=== PATIENT | female | born 1965 | race Caucasian/White ===

== ENCOUNTER 2020-06-02 07:32 | Outpatient (REF) | payer OTHER, SELFPAY ==
[2020-06-02 11:19] LABS: MANUAL DIFF FLAG NO
[2020-06-02 11:36] LABS: Basophils Absolute Auto 0.1 X10*3/uL (0.0-0.2); Basophils Percent Auto 0.9 % (0-2); Eosinophils Absolute Auto 0.2 X10*3/uL (0.0-0.4); Eosinophils Percent Auto 3.4 % (0-4); Hemoglobin 13.1 g/dl (12.0-16.0); Imm Gran Abs Auto 0.01 X10*3/uL (0.00-0.03); Imm Gran Pct Auto 0.2 % (0.0-0.4); Lymphocytes Absolute Auto 2.1 X10*3/uL (1.2-4.9); Lymphocytes Percent Auto 39.1 % (20-40); Mean Corpuscular Hemoglobin 30.2 pg (27.0-33.0); Mean Corpuscular Volume 94.5 fL (80-98); Mean Platelet Volume 10.5 fL (9.4-12.3); Monocytes Absolute Auto 0.6 X10*3/uL (0.1-1.2); Monocytes Percent Auto 10.6 % (2-11); Neutrophils Absolute Auto 2.5 X10*3/uL (2.0-8.3); Neutrophils Percent Auto 45.8 % (45-73); Platelet Count 206 X10*3/uL (160-400); Red Blood Count 4.34 X10*6/uL (4.20-5.50); Red Cell Distribution Width 11.9 % (11.0-16.0); White Blood Count 5.4 X10*3/uL (4.8-10.8)
[2020-06-02 11:45] LABS: Glucose Urine UA NEG (NEG); Leukocyte Esterase Urine NEG (NEG); Nitrite Urine NEG (NEG); PH 6.5 (5.0-8.0); Urine Blood NEG (NEG); Urine Ketones NEG (NEG); Urine Protein NEG (NEG-TRACE)
[2020-06-02 11:47] LABS: Appearance Urine CLEAR; Color Urine YELLOW
[2020-06-02 11:56] LABS: Alanine Aminotransferase 29 U/L (0-31); Albumin Level 4.2 g/dL (3.5-5.0); Alkaline Phosphatase 55 U/L (39-117); Anion Gap 10 (12-20); Aspartate Amino Transferase 25 U/L (5-31); Bilirubin Total 0.7 mg/dL (0.0-1.0); Blood Urea Nitrogen 14 mg/dL (9-16); Carbon Dioxide 31 mmol/L (22-29); Chloride 105 mmol/L (96-108); Cholesterol 171 mg/dL; Estimated Glomerular Filt Rate > 60; Glucose Fasting 88 mg/dL (60-99); HDL Cholesterol 71 mg/dL; LDL Cholesterol Calculated 80 mg/dl; Potassium 4.2 mmol/L (3.3-5.1); Sodium 142 mmol/L (135-145); Total Protein 6.9 g/dL (6.5-8.0); Triglycerides 102 mg/dL
[2020-06-02 12:20] LABS: Mucus Urine 2+ /LPF; RBC Urine 0-2 /HPF (0); Squamous Epithelial Cell Urine 2+ /LPF; WBC Urine 0-2 /HPF (0-4)
[2020-06-02 12:22] LABS: TSH reflex Free T4 4.11 uIU/mL (0.32-4.0)
[2020-06-02 13:24] LABS: Free T4 (Free Thyroxine) 0.82 ng/dL (0.71-1.85)
== END 2020-06-02 07:33 | disposition home or self-care (01) ==
LOC: HO.HMGCLDS 07:32
PROVIDERS: PCP Internal Medicine; Visit Provider Internal Medicine
DX: Z00.00 Encounter for general adult medical examination without abnormal findings (principal)
CPT/HCPCS: 36415; 80053; 80061; 81001; 84439; 84443; 85025

== ENCOUNTER 2021-01-19 12:45 | Outpatient (REF) | payer OTHER, SELFPAY ==
[2021-01-19 14:47] LABS: TSH reflex Free T4 2.21 uIU/mL (0.32-4.0)
== END 2021-01-19 12:46 | disposition home or self-care (01) ==
LOC: HO.HMGCLDS 12:45
PROVIDERS: Visit Provider Internal Medicine
DX: Z00.00 Encounter for general adult medical examination without abnormal findings (principal); E03.8 Other specified hypothyroidism; Z12.11 Encounter for screening for malignant neoplasm of colon
CPT/HCPCS: 36415; 84443

== ENCOUNTER 2022-07-30 14:25 | Outpatient (REF) | payer OTHER, SELFPAY ==
[2022-07-31 12:38] LABS: BV Int Neg Control Negative (Negative); BV Int Pos Control Positive (Positive)
== END 2022-07-30 14:26 | disposition home or self-care (01) ==
LOC: HO.LAB 14:25
PROVIDERS: Visit Provider Internal Medicine
DX: R10.2 Pelvic and perineal pain (principal)
CPT/HCPCS: 87480; 87510; 87660

== ENCOUNTER 2022-08-12 08:14 | Outpatient (REF) | payer OTHER, SELFPAY ==
[2022-08-12 11:12] LABS: MANUAL DIFF FLAG NO
[2022-08-12 11:33] LABS: Basophils Absolute Auto 0.1 X10*3/uL (0.0-0.2); Basophils Percent Auto 1.5 % (0-2); Eosinophils Absolute Auto 0.1 X10*3/uL (0.0-0.4); Hematocrit 39.9 % (37.0-47.0); Imm Gran Abs Auto 0.01 X10*3/uL (0.00-0.03); Imm Gran Pct Auto 0.2 % (0.0-0.4); Lymphocytes Absolute Auto 1.9 X10*3/uL (1.2-4.9); Lymphocytes Percent Auto 39.5 % (20-40); Mean Corpuscular HGB Conc 32.6 g/dl (31.0-35.0); Mean Corpuscular Hemoglobin 30.7 pg (27.0-33.0); Mean Corpuscular Volume 94.3 fL (80.0-98.0); Mean Platelet Volume 10.4 fL (9.4-12.3); Monocytes Absolute Auto 0.6 X10*3/uL (0.1-1.2); Neutrophils Percent Auto 42.8 % (45-73); Platelet Count 228 X10*3/uL (160-400); Red Blood Count 4.23 X10*6/uL (4.20-5.50); Red Cell Distribution Width 12.2 % (11.0-16.0); White Blood Count 4.7 X10*3/uL (4.8-10.8)
[2022-08-12 11:36] LABS: Appearance Urine Clear; Color Urine Yellow; Glucose Urine UA Negative (Negative); Leukocyte Esterase Urine Trace (Negative); Nitrite Urine Negative (Negative); PH 6.5 (5.0-9.0); UMIC TRIGGER UACC YES; Urine Blood Negative (Negative); Urine Ketones Negative (Negative); Urine Protein Negative (Neg-Trace)
[2022-08-12 11:39] LABS: Bacteria Urine None Seen (None Seen); Hyaline Casts Urine 0-2 /LPF (0-2); RBC Urine 0-2 /HPF (0-2); WBC Urine 0-5 /HPF (0-5)
[2022-08-12 12:09] LABS: Alanine Aminotransferase 22 U/L (0-31); Albumin Level 4.1 g/dL (3.5-5.0); Alkaline Phosphatase 49 U/L (39-117); Anion Gap 8 (12-20); Aspartate Amino Transferase 23 U/L (5-31); Bilirubin Total 0.8 mg/dL (0.0-1.0); Blood Urea Nitrogen 14 mg/dL (9-16); Calcium 9.1 mg/dL (8.4-10.2); Carbon Dioxide 31 mmol/L (22-29); Chloride 107 mmol/L (96-108); Cholesterol 206 mg/dL; Estimated Glomerular Filt Rate > 60; Glucose Fasting 94 mg/dL (60-99); HDL Cholesterol 90 mg/dL; LDL Cholesterol Calculated 102 mg/dl; Potassium 4.3 mmol/L (3.3-5.1); Sodium 142 mmol/L (135-145); Total Protein 6.8 g/dL (6.5-8.0); Triglycerides 74 mg/dL
[2022-08-12 12:10] LABS: TSH reflex Free T4 2.03 uIU/mL (0.32-4.0); Vitamin D 25-OH Total 28.4 ng/mL (>30)
== END 2022-08-12 08:15 | disposition home or self-care (01) ==
LOC: HO.HMGCLDS 08:14
PROVIDERS: PCP Internal Medicine; Visit Provider Internal Medicine
DX: Z00.00 Encounter for general adult medical examination without abnormal findings (principal)
CPT/HCPCS: 36415; 80053; 80061; 81001; 82306; 84443; 85025

== ENCOUNTER 2023-08-02 06:56 | Outpatient (REF) | payer BC, SELFPAY ==
[2023-08-02 11:49] LABS: Basophils Absolute Auto 0.1 X10*3/uL (0.0-0.2); Basophils Percent Auto 1.1 % (0-2); Eosinophils Absolute Auto 0.2 X10*3/uL (0.0-0.4); Eosinophils Percent Auto 3.3 % (0-4); Hematocrit 39.2 % (37.0-47.0); Hemoglobin 13.4 g/dl (12.0-16.0); Imm Gran Abs Auto 0.02 X10*3/uL (0.00-0.03); Imm Gran Pct Auto 0.4 % (0.0-0.4); Lymphocytes Absolute Auto 2.1 X10*3/uL (1.2-4.9); Lymphocytes Percent Auto 39.4 % (20-40); MANUAL DIFF FLAG NO; Mean Corpuscular HGB Conc 34.2 g/dl (31.0-35.0); Mean Corpuscular Hemoglobin 31.6 pg (27.0-33.0); Mean Corpuscular Volume 92.5 fL (80.0-98.0); Mean Platelet Volume 9.9 fL (9.4-12.3); Monocytes Absolute Auto 0.6 X10*3/uL (0.1-1.2); Monocytes Percent Auto 11.3 % (2-11); Neutrophils Absolute Auto 2.4 x10*3/uL (2.0-8.3); Neutrophils Percent Auto 44.5 % (45-73); Platelet Count 233 X10*3/uL (160-400); Red Blood Count 4.24 X10*6/uL (4.20-5.50); Red Cell Distribution Width 12.3 % (11.0-16.0); White Blood Count 5.4 X10*3/uL (4.8-10.8)
[2023-08-02 12:17] LABS: Alanine Aminotransferase 22 U/L (0-31); Albumin Level 4.2 g/dL (3.5-5.0); Alkaline Phosphatase 48 U/L (39-117); Anion Gap 11 (12-20); Aspartate Amino Transferase 25 U/L (5-31); Bilirubin Total 0.7 mg/dL (0.0-1.0); Blood Urea Nitrogen 14 mg/dL (9-16); Calcium 9.6 mg/dL (8.4-10.2); Carbon Dioxide 30 mmol/L (22-29); Chloride 105 mmol/L (96-108); Cholesterol 178 mg/dL (<200); Estimated Glomerular Filt Rate > 60; Glucose Fasting 96 mg/dL (60-99); HDL Cholesterol 88 mg/dL (>40); LDL Cholesterol Calculated 81 mg/dL (<100); Potassium 4.1 mmol/L (3.3-5.1); Sodium 142 mmol/L (135-145); Total Protein 6.9 g/dL (6.5-8.0); Triglycerides 45 mg/dL (<150)
[2023-08-02 12:36] LABS: TSH reflex Free T4 3.37 uIU/mL (0.32-4.0); Vitamin D 25-OH Total 41.8 ng/mL (>30)
== END 2023-08-02 06:57 | disposition home or self-care (01) ==
LOC: HO.HMGCLDS 06:56
PROVIDERS: PCP Internal Medicine; Visit Provider Internal Medicine
DX: Z00.00 Encounter for general adult medical examination without abnormal findings (principal); E03.8 Other specified hypothyroidism; E55.9 Vitamin D deficiency, unspecified
CPT/HCPCS: 36415; 80053; 80061; 82306; 84443; 85025

== ENCOUNTER 2023-08-04 07:53 | Outpatient (AMB) | payer BC, SELFPAY ==
--- NOTE | 2023-08-04 08:02 | MHC.PC.OV ---
Vital Signs 08/04/23 08:04 Height 5 ft 7 in Weight 142 lb BMI 22.2 BP 120/72 Blood Pressure Location Rt brachial Position Sitting Pulse 72 Pulse Source Pulse Oximeter Pulse Oximetry (%) 98 Oxygen Delivery Method Room Air Intake Visit Reasons: Annual PE Allergies penicillin V Allergy (Unknown, Verified 08/04/23 08:04) Rash Medication List - Last Reconciled 08/04/23 by Tasha Crabtree MD chlorpheniramine maleate 4 mg PO Q4H PRN Tobacco use date assessed: 08/04/23 Dental Screening Dental Screen Date: 08/04/23 Did you have a dental visit in the last 12 months?: Yes Did you have a dental problem in the last 6 months where you did not have access to dental care?: No Was dental information given to patient?: Patient has dentist HPI Annual PE HPI Details Pt presents for PE. PFSH Medical History Colon cancer screening Subclinical hypothyroidism Mammogram normal Normal Pap smear Anxiety Annual physical exam Surgical History No pertinent past surgical history Family History Father No problems noted. 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[employer] Housing: House Patient Tobacco Use Status: Former Tobacco user (over 20 years ago) e-Cigarette/Vaping Use: Never Used Current occupational status: employed Cognitive needs: No Hearing needs: No Vision needs: Yes Questionnaire Thrive Questionnaire Date Thrive assessed: 01/19/21 I am a: Patient What is your living situation today?: I have a steady place to live Within the past 12 months, did the food you bought not last and you didn't have the money to get more?: Never true Within the past 12 months, did you worry whether your food would run out before you got money to buy more?: Never true THRIVE Score: 0 AUDIT C Alcohol Use Questionnaire (AUDIT-C) 1. How often do you have a drink containing alcohol?: 2-3 times a week 2. How many drinks containing alcohol do you have on a typical day when you are drinking?: 1 or 2 3. How often do you have six or more drinks on one occasion?: Never Total Score: 3 ADONAY-7 AMB Questionnaire ADONAY-7 Date ADONAY - 7 assessed: 01/19/21 Feeling nervous, anxious, or on edge: 1 = Several days Not being able to stop or control worryin = Several days Worrying too much about different things: 1 = Several days Trouble relaxin = Several days Being so restless that it is hard to sit still: 1 = Several days Becoming easily annoyed or irritable: 1 = Several days Feeling afraid as if something awful might happen: 0 = Not at all Total ADONAY-7 score (0-4 normal; 5-9 mild; 10-14 moderate; 15-21 severe): 6 Source: Developed by Drs. Evan Diaz, Ariane Lance, Gerardo Stovall and colleagues, with an educational idalia from [employer]. Review of Systems Const All systems reviewed & are unremarkable except as noted in HPI and below Reports no additional complaints Eyes Reports no additional complaints ENT Reports no additional complaints Card Reports no additional complaints Resp Reports no additional complaints GI Reports no additional complaints Reports no additional complaints Physical exam (Primary Care) Vital Signs: Last Vital Signs Pulse 72 08/04/23 08:04 BP 120/72 08/04/23 08:04 Pulse Ox 98 08/04/23 08:04 Oxygen Delivery Method Room Air 08/04/23 08:04 BMI result Body Mass Index 22.2 Tobacco/Smoking Status: Tobacco use Status Tobacco use date assessed 08/04/23 08/04/23 08:06 Patient Tobacco Use Status Former Tobacco user (over 20 08/04/23 08:16 years ago) e-Cigarette/Vaping Use Never Used 08/04/23 08:16 Thrive Assessment: Date of Thrive Assessment Date Thrive assessed 01/19/21 08/04/23 08:06 Const General: no acute distress HENMT Head: Yes normal to inspection Ears: hearing grossly normal bilaterally General nose exam: Normal external nose present Face and sinus: Yes normal facial exam Mouth: Normal oral and palatal mucosa present Throat: Yes posterior oropharynx normal Eyes General: appearance normal, both eyes and all related structures Neck Neck: Yes no lymphadenopathy and Yes supple Resp Effort & Inspection: normal respiratory effort Auscultation: clear to auscultation bilaterally Cardio Rhythm: regular rhythm Heart sounds: S1 normal heart sound present and S2 normal heart sound present GI Inspection: Yes normal to inspection Palpation (GI): Soft to palpation Percussion: Yes normal to percussion Auscultation: normal bowel sounds Assessment and Plan Assessment & Plan (1) Annual physical exam: Code(s): Z00.00 - Encounter for general adult medical examination without abnormal findings Plan: Well balanced diet, regular exercise discussed with the patient. She has up-to-date with the mammogram had negative Cologuard this year and had negative Pap smear in 2020 by estate agent (2) Subclinical hypothyroidism: Code(s): E03.8 - Other specified hypothyroidism Plan: Monitor TSH (3) Vitamin D deficiency: Code(s): E55.9 - Vitamin D deficiency, unspecified Plan: Continue vitamin-D supplement Orders: Orders Comprehensive [place]. Panel Fast 1 Year E03.8 - Other specified hypothyroidism, E55.9 - Vitamin D deficiency, unspecified, Z00.00 - Encounter for general adult medical examination without abnormal findings Lipid Panel 1 Year E03.8 - Other specified hypothyroidism, E55.9 - Vitamin D deficiency, unspecified, Z00.00 - Encounter for general adult medical examination without abnormal findings Vitamin D 25-OH Total 1 Year E03.8 - Other specified hypothyroidism, E55.9 - Vitamin D deficiency, unspecified, Z00.00 - Encounter for general adult medical examination without abnormal findings Complete Blood Count Auto Diff 1 Year E03.8 - Other specified hypothyroidism, E55.9 - Vitamin D deficiency, unspecified, Z00.00 - Encounter for general adult medical examination without abnormal findings TSH reflex Free T4 1 Year E03.8 - Other specified hypothyroidism, E55.9 - Vitamin D deficiency, unspecified, Z00.00 - Encounter for general adult medical examination without abnormal findings Coding Level of Care Code Est Pt Prev Care 40-64y(91818) Diagnoses Annual physical exam Z00.00 Subclinical hypothyroidism E03.8 Vitamin D deficiency E55.9
[2023-08-04 08:04] VITALS: BP 120/72; PULSE 72; O2SAT 98; BMI 22.2
== END 2023-08-04 08:26 | disposition home or self-care (01) ==
PROVIDERS: Visit Provider Internal Medicine
DX: Z00.00 Encounter for general adult medical examination without abnormal findings (principal); E03.8 Other specified hypothyroidism; E55.9 Vitamin D deficiency, unspecified
CPT/HCPCS: 99396

== ENCOUNTER 2023-09-11 08:06 | Outpatient (AMB) | payer BC, SELFPAY ==
[2023-09-11 08:08] VITALS: BP 122/70; PULSE 76; TEMP 36.9; O2SAT 98; BMI 22.2
--- NOTE | 2023-09-11 08:08 | MHC.OFFWIV ---
Intake Vital Signs 09/11/23 08:08 Height 5 ft 7 in Weight 142 lb BMI 22.2 BP 122/70 Blood Pressure Location Rt brachial Position Sitting Pulse 76 Pulse Source Pulse Oximeter Temp 98.5 F Temp Source Oral Pulse Oximetry (%) 98 Oxygen Delivery Method Room Air Intake Visit Reasons: EP RT ear pain Intake Note: pt is here for rt ear pain Patient Tobacco Use Status: Former Tobacco user (over 20 years ago) Allergies penicillin V Allergy (Unknown, Verified 09/11/23 08:09) Rash Do you need a note to return to daycare/school/sports/work: Yes HPI EP RT ear pain HPI Details This note is constructed using voice recognition software. While every effort has been made to ensure accuracy, support representative errors may have been included. 57-year-old female patient presents with 2 day history of right ear blockage, pain, and clear discharge. She notes that she has had a longstanding issue where she has had itch inside the ear, and uses an ear drop that is essential oils to help with the irritation feeling. She also notes that she occasionally uses Debrox because she feels that she has lots of cerumen in her ear. She does not insert Q-tips, and has minimal change in her hearing as a result of this issue. She denies fever, chills, cough, shortness of breath. She takes a daily antihistamine due to chronic hives, and this seems to work very well for hives as well as allergy treatment. [facility] Medical History Colon cancer screening Subclinical hypothyroidism Mammogram normal Normal Pap smear Anxiety Annual physical exam Surgical History No pertinent past surgical history Family History Father No problems noted. 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 Patient Tobacco Use Status: Former Tobacco user (over 20 years ago) e-Cigarette/Vaping Use: Never Used Current occupational status: employed Cognitive needs: No Hearing needs: No Vision needs: Yes Review of Systems Const All systems reviewed & are unremarkable except as noted in HPI and below Physical Exam Vital Signs: Last Vital Signs Temp 98.5 F 09/11/23 08:08 Pulse 76 09/11/23 08:08 BP 122/70 09/11/23 08:08 Pulse Ox 98 09/11/23 08:08 Oxygen Delivery Method Room Air 09/11/23 08:08 BMI result Body Mass Index 22.2 Const General: cooperative, healthy appearing, comfortable and no acute distress Orientation/consciousness: patient oriented x3 Limitations: no limitations HEENT Head: Yes normal to inspection Ears: hearing grossly normal bilaterally, Abnormal EAC present erythema on the right and TM abnormal retracted bilateral General nose exam: Normal external nose present, Normal nares present and No nasal discharge present Face and sinus: Yes normal facial exam and Yes sinuses nontender Mouth: Normal oral and palatal mucosa present and moist mucous membranes Throat: Yes tonsils normal, Yes uvula midline and Yes posterior oropharynx abnormal (Erythema) Eyes General: appearance normal, both eyes and all related structures Neck Neck: Yes normal visual inspection Resp Effort & Inspection: normal respiratory effort, able to speak in complete sentences, Actively coughing, no respiratory distress, not tachypneic, no tripod positioning and no use of accessory muscles Auscultation: clear to auscultation bilaterally Cardio Jugular venous distension: no JVD Rate: regular rate Rhythm: regular rhythm Heart sounds: S1 normal heart sound present, S2 normal heart sound present, no click, no gallops, no murmurs and no rubs Skin General skin exam: no rashes or lesions noted, elasticity normal and turgor normal Neuro General: patient oriented x3 Extrem General: Yes normal to inspection and Yes no clubbing, cyanosis or edema Assessment & Plan Assessment & Plan (1) Otitis externa of right ear: Code(s): H60.91 - Unspecified otitis externa, right ear Qualifiers: Otitis externa type: swimmer's ear Chronicity: acute Qualified Code(s): H60.331 - Swimmer's ear, right ear Plan: Eardrops prescribed for treatment. Advised to follow up with any worsening symptoms, including sudden loss of hearing, or discharge. (2) Allergic rhinitis: Code(s): J30.9 - Allergic rhinitis, unspecified Qualifiers: Allergic rhinitis trigger: pollen Allergic rhinitis seasonality: seasonal Qualified Code(s): J30.1 - Allergic rhinitis due to pollen Plan: Advised the addition of Flonase nasal spray for symptomatic relief. Continue with antihistamine, consider discussion with tug boat captain on appropriate treatment plan long-term. Plan See above for full details and plan. Medications: New ciprofloxacin-dexamethasone 0.3-0.1 % Apply inside right ear 4 drps otic (ears) BID 7 days 7.5 mL 0RF Coding Level of Care Code Est Pt Level 4 (98455) Diagnoses Acute swimmer's ear of right side H60.331 Otitis externa type: swimmer's ear Chronicity: acute Seasonal allergic rhinitis due to pollen J30.1 Allergic rhinitis trigger: pollen Allergic rhinitis seasonality: seasonal
== END 2023-09-11 09:02 | disposition home or self-care (01) ==
PROVIDERS: PCP Internal Medicine; Visit Provider Registered Nurse
DX: H60.331 Swimmer's ear, right ear (principal); J30.1 Allergic rhinitis due to pollen
CPT/HCPCS: 99214

== ENCOUNTER 2024-02-04 08:26 | Outpatient (AMB) | payer BC, SELFPAY ==
--- NOTE | 2024-02-04 08:32 | MHC.OFFWIV ---
Intake Vital Signs 02/04/24 08:33 Height 5 ft 7 in Weight 146 lb BMI 22.9 BP 118/70 Blood Pressure Location Rt brachial Position Sitting Pulse 82 Pulse Source Pulse Oximeter Temp 97.9 F Temp Source Oral Pulse Oximetry (%) 98 Oxygen Delivery Method Room Air Intake Visit Reasons: EP pain on both ears, specially LT, sore throat Intake Note: Patient here for left ear pain that has been present for about 3 days. Patient Tobacco Use Status: Former Tobacco user (over 20 years ago) Allergies penicillin V Allergy (Unknown, Verified 02/04/24 08:34) Rash Do you need a note to return to daycare/school/sports/work: No HPI EP pain on both ears, specially LT, sore throat HPI Details This note is constructed using voice recognition software. While every effort has been made to ensure accuracy, special agent [employer]bi errors may have been included. The patient is a 58 year old female who presents to the clinic today with left-sided ear pain and sore throat for the past 3 days. She notes that she has been dealing with allergies for nearly her entire life, and was taking chlorpheniramine daily, when she stopped suddenly about a week ago. She had read that that particular medication can be associated with increased risk of dementia. Her father recently of dementia, which has led to the choice to stop that medication. She did not add in an alternate antihistamine, trying to be without it. She notes that she started with symptoms 3 days ago, with left more than right ear pain, however some bilateral symptoms. The left particularly feels itchy, painful, warm. She denies fever, chills, shortness of breath, but does note a mild light cough, and sore throat. She has not taken anything to alleviate the symptoms. [facility] Medical History Colon cancer screening Subclinical hypothyroidism Mammogram normal Normal Pap smear Anxiety Annual physical exam Surgical History No pertinent past surgical history Family History Father No problems noted. 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 Patient Tobacco Use Status: Former Tobacco user (over 20 years ago) e-Cigarette/Vaping Use: Never Used Current occupational status: employed Cognitive needs: No Hearing needs: No Vision needs: Yes Review of Systems Const All systems reviewed & are unremarkable except as noted in HPI and below Physical Exam Vital Signs: Last Vital Signs Temp 97.9 F 02/04/24 08:33 Pulse 82 02/04/24 08:33 BP 118/70 02/04/24 08:33 Pulse Ox 98 02/04/24 08:33 Oxygen Delivery Method Room Air 02/04/24 08:33 BMI result Body Mass Index 22.9 Const General: cooperative, healthy appearing, comfortable and no acute distress Orientation/consciousness: patient oriented x3 HEENT Head: Yes normal to inspection, Yes No palpable skull fracture present and Yes normocephalic Ears: hearing grossly normal bilaterally, external ears normal, EAC's normal, mastoids normal (no TTP) bilaterally and TM abnormal (left) bulging and erythematous General nose exam: Normal external nose present Face and sinus: Yes normal facial exam Mouth: Abnormal oral and palatal mucosa present erythematous Teeth and gingiva: dentition normal Throat: Yes posterior oropharynx normal Eyes General: appearance normal, both eyes and all related structures Neck Neck: Yes normal visual inspection, Yes full ROM, Yes no lymphadenopathy, Yes no meningeal signs, Yes trachea midline and Yes supple Resp Effort & Inspection: normal respiratory effort and able to speak in complete sentences Skin General skin exam: no rashes or lesions noted Neuro General: patient oriented x3 and no meningeal signs Assessment & Plan Assessment & Plan (1) Otitis media: Code(s): H66.90 - Otitis media, unspecified, unspecified ear Qualifiers: Otitis media type: suppurative Chronicity: acute Laterality: left Recurrence: non-recurrent Spontaneous tympanic membrane rupture: without spontaneous rupture Qualified Code(s): H66.002 - Acute suppurative otitis media without spontaneous rupture of ear drum, left ear Plan: Supportive measures encouraged and reviewed. Antibiotic sent to requested pharmacy, advised patient to take antibiotics until completed and not to stop if feeling better, unless the patient has side effects. Advised patient to follow up with primary care provider with worsening or failure to resolve. Plan See above for full details and plan. Medications: New doxycycline hyclate 100 mg PO BID 7 days 14 caps 0RF Coding Level of Care Code Est Pt Level 3 (37949) Diagnoses Non-recurrent acute suppurative otitis media of left ear without spontaneous rupture of tympanic membrane H66.002 Otitis media type: suppurative Chronicity: acute Laterality: left Recurrence: non-recurrent Spontaneous tympanic membrane rupture: without spontaneous rupture
[2024-02-04 08:33] VITALS: BP 118/70; PULSE 82; TEMP 36.6; O2SAT 98; BMI 22.9
== END 2024-02-04 09:41 | disposition home or self-care (01) ==
PROVIDERS: PCP Internal Medicine; Visit Provider Registered Nurse
DX: H66.002 Acute suppurative otitis media without spontaneous rupture of ear drum, left ear (principal)

== ENCOUNTER 2024-02-12 13:02 | Outpatient (AMB) | payer BC, SELFPAY ==
[2024-02-12 13:08] VITALS: BP 100/66; PULSE 76; O2SAT 98; BMI 22.9
--- NOTE | 2024-02-12 13:08 | A.OFFPC_ITS ---
Vital Signs 02/12/24 13:08 Height 5 ft 7 in Weight 146 lb BMI 22.9 BP 100/66 Blood Pressure Location Rt brachial Position Sitting Pulse 76 Pulse Source Pulse Oximeter Pulse Oximetry (%) 98 Oxygen Delivery Method Room Air Intake Visit Reasons: Followup ear pain Intake Note: Pt is here today for a follow up visit on ear pain. Pt states that she had burning itching and discharge from both eyes but the left one us worst. Allergies penicillin V Allergy (Unknown, Verified 02/12/24 13:29) Rash Medication List - Last Reconciled 02/12/24 by Tasha Crabtree MD ciprofloxacin-dexamethasone 0.3-0.1 % 4 drps otic (ears) BID tobramycin 0.3% 1 drp ophthalmic (eye) Q4H Tobacco use date assessed: 08/04/23 Dental Screening Dental Screen Date: 08/04/23 HPI Followup ear pain HPI Details Patient presents complaining of persistent left ear feeling blocked and some discharge intermittent pain. She completed course of doxycycline without relief. She denies fever chills sore throat congestion. Patient complains of left eye itching and increased tearing for 1 day PFSH Medical History Colon cancer screening Subclinical hypothyroidism Mammogram normal Normal Pap smear Anxiety Annual physical exam Surgical History No pertinent past surgical history Family History Father No problems noted. 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 1. Little interest or pleasure in doing things: not at all 2. Feeling down, depressed, or hopeless: not at all 3. Trouble falling or staying asleep, or sleeping too much: not at all 4. Feeling tired or having little energy: several days 5. Poor appetite or overeating: not at all 6. Feeling bad about yourself - or that you are a failure or have let yourself or your family down: not at all 7. Trouble concentrating on things, such as reading the newspaper or watching television: not at all 8. Moving or speaking so slowly that other people could have noticed. Or the opposite - being so fidgety or restless that you have been moving around a lot more than usual: not at all 9. Thoughts that you would be better off or of hurting yourself in some way: not at all Total score: 1 Depression Screening Interpretation: Negative Depression Screening Done: Yes 49460 - PHQ-9 Billing: Yes Source: Developed by Drs. Evan Diaz, Ariane Lance, Gerardo Stovall and colleagues, with an educational idalia from [employer]. Thrive Questionnaire Date Thrive assessed: 02/12/24 I am a: Patient What is your living situation today?: I have a steady place to live Within the past 12 months, did the food you bought not last and you didn't have the money to get more?: Never true Within the past 12 months, did you worry whether your food would run out before you got money to buy more?: Never true Do you have trouble paying for medicines?: No Do you have trouble getting transportation to medical appointments?: No Do you have trouble paying your heating and electricity bill?: No Do you have trouble taking care of your child, family member or friend?: No Do you have trouble with day-to-day activities such as bathing, preparing meals, shopping, managing finances, etc.?: No Are you currently unemployed and looking for a job?: No Are you interested in more education?: No Please select the resources that you would like help with: None Currently or been in a relationship where the following occur: No concerns reported THRIVE Score: 0 AUDIT C Alcohol Use Questionnaire (AUDIT-C) 1. How often do you have a drink containing alcohol?: 2-3 times a week 2. How many drinks containing alcohol do you have on a typical day when you are drinking?: 1 or 2 3. How often do you have six or more drinks on one occasion?: Never Total Score: 3 ADONAY-7 AMB Questionnaire ADONAY-7 Date ADONAY - 7 assessed: 02/12/24 Feeling nervous, anxious, or on edge: 1 = Several days Not being able to stop or control worryin = Not at all Worrying too much about different things: 0 = Not at all Trouble relaxin = Not at all Being so restless that it is hard to sit still: 0 = Not at all Becoming easily annoyed or irritable: 0 = Not at all Feeling afraid as if something awful might happen: 0 = Not at all Total ADONAY-7 score (0-4 normal; 5-9 mild; 10-14 moderate; 15-21 severe): 1 Source: Developed by Drs. Evan Diaz, Ariane Lance, Gerardo Stovall and colleagues, with an educational idalia from [employer]. ADONAY-7 Assessment Billing ADONAY-7 Assessment Tool: ADONAY-7 Assessment 73001 Review of Systems Const All systems reviewed & are unremarkable except as noted in HPI and below Eyes Reports no additional complaints ENT Reports no additional complaints Card Reports no additional complaints Resp Reports no additional complaints GI Reports no additional complaints Physical exam (Primary Care) Vital Signs: Last Vital Signs Pulse 76 02/12/24 13:08 BP 100/66 02/12/24 13:08 Pulse Ox 98 02/12/24 13:08 Oxygen Delivery Method Room Air 02/12/24 13:08 BMI result Body Mass Index 22.9 Tobacco/Smoking Status: Tobacco use Status Tobacco use date assessed 08/04/23 02/12/24 13:08 Patient Tobacco Use Status Former Tobacco user (over 20 02/12/24 13:08 years ago) e-Cigarette/Vaping Use Never Used 02/12/24 13:08 PHQ-9: PHQ-9 Score PHQ-9: Total score 1 02/12/24 13:32 Depression Screening Interpretation: Negative Thrive Assessment: Date of Thrive Assessment Date Thrive assessed 02/12/24 02/12/24 13:08 Currently or been in a relationship where the following occur: No concerns reported Const General: no acute distress HENMT Head: Yes normal to inspection Ears: unable to visualize TM (Cerumen present) on the left General nose exam: Normal nasal mucous membranes and turbinates present Mouth: Normal oral and palatal mucosa present Eyes Other: Left eye injected conjunctiva Neck Neck: Yes no lymphadenopathy and Yes supple Resp Auscultation: clear to auscultation bilaterally Cardio Rhythm: regular rhythm Heart sounds: S1 normal heart sound present and S2 normal heart sound present Coding Level of Care Code Est Pt Level 3 (11776) Diagnoses Left otitis externa H60.92 Additional Codes ADONAY-7 Assessment Billing - ADONAY-7 Assessment Tool: ADONAY-7 Assessment 15851 ([id number]) PHQ-9 - 41279 - PHQ-9 Billing: Yes ([id number]) Assessment & Plan Assessment & Plan (1) Left otitis externa: Code(s): H60.92 - Unspecified otitis externa, left ear Category: Medical Plan: Cipro ear drops prescribed to use twice a day for 1 week, follow-up in 1 week Medications: New tobramycin 0.3% 1 drp ophthalmic (eye) Q4H 5 mL 0RF ciprofloxacin-dexamethasone 0.3-0.1 % to L ear 4 drps otic (ears) BID 7.5 mL 0RF
== END 2024-02-12 14:19 | disposition home or self-care (01) ==
PROVIDERS: PCP Internal Medicine; Visit Provider Internal Medicine
DX: H60.92 Unspecified otitis externa, left ear (principal)

== ENCOUNTER → 2024-02-12 13:02 | Outpatient (BNVA) | payer BC, SELFPAY | PROVIDERS: PCP Internal Medicine; Visit Provider Internal Medicine | DX: H60.92 Unspecified otitis externa, left ear (principal) | CPT/HCPCS: 96127 ==

== ENCOUNTER 2024-02-18 10:51 | Outpatient (AMB) | payer BC, SELFPAY ==
[2024-02-18 10:55] VITALS: BP 102/62; PULSE 79; O2SAT 98; BMI 22.9
--- NOTE | 2024-02-18 10:55 | A.OFFPC_ITS ---
Vital Signs 02/18/24 10:55 Height 5 ft 7 in Weight 146 lb BMI 22.9 BP 102/62 Blood Pressure Location Rt brachial Position Sitting Pulse 79 Pulse Source Pulse Oximeter Pulse Oximetry (%) 98 Oxygen Delivery Method Room Air Intake Visit Reasons: 1 week follow up Allergies penicillin V Allergy (Unknown, Verified 02/18/24 10:57) Rash Medication List - Last Reconciled 02/18/24 by Tasha Crabtree MD ciprofloxacin-dexamethasone 0.3-0.1 % 4 drps otic (ears) BID tobramycin 0.3% 1 drp ophthalmic (eye) Q4H Tobacco use date assessed: 02/18/24 Dental Screening Dental Screen Date: 08/04/23 HPI 1 week follow up HPI Details Patient presents for the follow-up of left ear otitis media. Patient is feeling better denies any ear pain or discharge. [facility] Medical History Colon cancer screening Subclinical hypothyroidism Mammogram normal Normal Pap smear Anxiety Annual physical exam Surgical History No pertinent past surgical history Family History Father No problems noted. 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 Patient Tobacco Use Status: Former Tobacco user (over 20 years ago) e-Cigarette/Vaping Use: Never Used Current occupational status: employed Cognitive needs: No Hearing needs: No Vision needs: Yes Questionnaire Thrive Questionnaire Date Thrive assessed: 02/12/24 I am a: Patient What is your living situation today?: I have a steady place to live Within the past 12 months, did the food you bought not last and you didn't have the money to get more?: Never true Within the past 12 months, did you worry whether your food would run out before you got money to buy more?: Never true Do you have trouble paying for medicines?: No Do you have trouble getting transportation to medical appointments?: No Do you have trouble paying your heating and electricity bill?: No Do you have trouble taking care of your child, family member or friend?: No Do you have trouble with day-to-day activities such as bathing, preparing meals, shopping, managing finances, etc.?: No Are you currently unemployed and looking for a job?: No Are you interested in more education?: No Please select the resources that you would like help with: None Currently or been in a relationship where the following occur: No concerns reported THRIVE Score: 0 ADONAY-7 AMB Questionnaire ADONAY-7 Date ADONAY - 7 assessed: 02/12/24 Source: Developed by Drs. Evan Diaz, Ariane Lance, Gerardo Stoavll and colleagues, with an educational idalia from [employer]. Review of Systems Const All systems reviewed & are unremarkable except as noted in HPI and below Eyes Reports no additional complaints ENT Reports no additional complaints Card Reports no additional complaints Resp Reports no additional complaints Physical exam (Primary Care) Vital Signs: Last Vital Signs Pulse 79 02/18/24 10:55 BP 102/62 02/18/24 10:55 Pulse Ox 98 02/18/24 10:55 Oxygen Delivery Method Room Air 02/18/24 10:55 BMI result Body Mass Index 22.9 Tobacco/Smoking Status: Tobacco use Status Tobacco use date assessed 02/18/24 02/18/24 11:00 Patient Tobacco Use Status Former Tobacco user (over 20 02/18/24 11:00 years ago) e-Cigarette/Vaping Use Never Used 02/18/24 11:00 Thrive Assessment: Date of Thrive Assessment Date Thrive assessed 02/12/24 02/18/24 11:00 Currently or been in a relationship where the following occur: No concerns reported Const General: no acute distress HENMT Head: Yes normal to inspection Ears: hearing grossly normal bilaterally and TM's normal bilaterally Face and sinus: Yes normal facial exam Eyes General: appearance normal, both eyes and all related structures Neck Neck: Yes supple Resp Effort & Inspection: normal respiratory effort Auscultation: clear to auscultation bilaterally Cardio Rhythm: regular rhythm Heart sounds: S1 normal heart sound present and S2 normal heart sound present Coding Level of Care Code Est Pt Level 3 (01498) Diagnoses Left otitis externa H60.92 Assessment & Plan Assessment & Plan (1) Left otitis externa: Code(s): H60.92 - Unspecified otitis externa, left ear Category: Medical Plan: Resolved
== END 2024-02-18 11:27 | disposition home or self-care (01) ==
PROVIDERS: PCP Internal Medicine; Visit Provider Internal Medicine
DX: H60.92 Unspecified otitis externa, left ear (principal)

== ENCOUNTER → 2024-02-18 10:51 | Outpatient (BNVA) | payer BC, SELFPAY | PROVIDERS: PCP Internal Medicine; Visit Provider Internal Medicine ==

== ENCOUNTER 2024-05-06 15:43 | Outpatient (AMB) | payer BC, SELFPAY ==
[2024-05-06 15:44] VITALS: BP 104/72; PULSE 73; TEMP 36.6; O2SAT 99; BMI 22.9
--- NOTE | 2024-05-06 15:44 | AM.OFFWIN_ITS ---
Intake Vital Signs 05/06/24 15:44 Height 5 ft 7 in Weight 146 lb BMI 22.9 BP 104/72 Blood Pressure Location Lt brachial Position Sitting Pulse 73 Pulse Source Pulse Oximeter Temp 97.9 F Temp Source Oral Pulse Oximetry (%) 99 Intake Visit Reasons: EP-lt eye itching and burning Patient Tobacco Use Status: Former Tobacco user (over 20 years ago) Allergies penicillin V Allergy (Unknown, Verified 02/18/24 10:57) Rash HPI HPI Comments History of Present Illness Details History of Present Illness - The patient is a 58-year-old female pr esenting with evaluation of left eyelid swelling and discomfort x 2days. - Describes the sensation on the left ey elid as resembling a bee sting with associated itching and burning commencing the prior evening. - The patient implemented ice compresses for symptom relief during the night. - Blister-like appearance noted on eyeli d - Mentions a previous episode of conjunc tivitis in March but reports current symptoms differ as they lack eye involvement and discharge. - Used diphenhydramine cream which appea red to reduce symptoms. Physical Exam General: Cooperative, healthy appearing, comfortable, no acute distress and well developed Orientation: Patient oriented x3 Limitations: No limitations Head: Normal to inspection Ears: Hearing grossly normal bilaterally Nose: Normal external nose present Face and sinus: Normal facial exam Eyes: Left upper eyelid very slightly swollen, no crusting or oozing observed, Right eye appears normal, PERRL, no injection bilaterally Neck: Normal visual inspection and Yes full ROM Respiratory: Normal respiratory effort and able to speak in complete sentences. Skin: No rashes or lesions noted Neuro: Patient oriented x3 Extremities: Normal to inspection [facility] Medical History Colon cancer screening Subclinical hypothyroidism Mammogram normal Normal Pap smear Anxiety Annual physical exam Surgical History No pertinent past surgical history Family History Father No problems noted. 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 Patient Tobacco Use Status: Former Tobacco user (over 20 years ago) e-Cigarette/Vaping Use: Never Used Current occupational status: employed Cognitive needs: No Hearing needs: No Vision needs: Yes Review of Systems Const All systems reviewed & are unremarkable except as noted in HPI and below Physical Exam Vital Signs: Last Vital Signs Temp 97.9 F 05/06/24 15:44 Pulse 73 05/06/24 15:44 BP 104/72 05/06/24 15:44 Pulse Ox 99 05/06/24 15:44 BMI result Body Mass Index 22.9 Assessment & Plan Assessment & Plan (1) Hordeolum of left eye: Code(s): H00.016 - Hordeolum externum left eye, unspecified eyelid Qualifiers: Hordeolum type: unspecified type Eyelid: unspecified eyelid Qualified Code(s): H00.016 - Hordeolum externum left eye, unspecified eyelid Plan: Considering the symptoms described and clinical observations, the primary suspicion is a stye on the left eyelid, for which warm compresses are recommen ded to alleviate symptoms and promote resolution. The application of lid scrubs is suggested to maintain eyelid hygiene and minimize infection risk. As there is concern for potential herpes zoster ophthalmicus, patient education focused on recognizing indicative symptoms, such as fluid-filled vesicles in the V1 dermatome, which was shown to the patient, is paramount. Should such symptoms manifest, immediate referral to an assembly adjuster is necessary. An ointment has been sent to the pharmacy, with instructions for use if conjunctivitis-like symptoms, such as crusting and specific yellow/green discharge, are observed, eliminating the need for an additional visit unless symptoms persist or worsen. Patient was informed and verbally consented to the use of an ambient scribe for clinic note documentation during this visit. Medications: New erythromycin Apply to left eye 4 times a day while awake 0.5 inches ophthalmic (eye) QID 3.5 grams 0RF Coding Level of Care Code Est Pt Level 3 (49989) Diagnoses Hordeolum of left eye, unspecified eyelid, unspecified hordeolum type H00.016 Hordeolum type: unspecified type Eyelid: unspecified eyelid
== END 2024-05-06 16:20 | disposition home or self-care (01) ==
PROVIDERS: PCP Internal Medicine; Visit Provider Physician Assistant
DX: H00.016 Hordeolum externum left eye, unspecified eyelid (principal)

== ENCOUNTER → 2024-05-06 15:43 | Outpatient (BNVA) | payer BC, SELFPAY | PROVIDERS: PCP Internal Medicine ==

== ENCOUNTER 2024-10-04 13:08 | Outpatient (AMB) | payer BC, SELFPAY ==
[2024-10-04 13:18] VITALS: BP 108/70; PULSE 78; RESP 18; TEMP 36.7; O2SAT 99; BMI 22.4
--- NOTE | 2024-10-04 13:18 | A.OFFPC_ITS ---
Vital Signs 10/04/24 13:18 Height 5 ft 7 in Weight 143 lb BMI 22.4 BP 108/70 Blood Pressure Location Lt brachial Position Sitting Respiration 18 Pulse 78 Pulse Source Pulse Oximeter Temp 98.1 F Temp Source Oral Pulse Oximetry (%) 99 Oxygen Delivery Method Room Air Intake Visit Reasons: Annual PE Intake Note: Pt is here today for PE. Allergies penicillin V Allergy (Unknown, Verified 10/04/24 13:21) Rash Medication List - Last Reconciled 10/04/24 by Tasha Crabtree MD Tobacco use date assessed: 10/04/24 Dental Screening Dental Screen Date: 10/04/24 Did you have a dental visit in the last 12 months?: Yes Did you have a dental problem in the last 6 months where you did not have access to dental care?: No Was dental information given to patient?: Patient has dentist HPI Annual PE HPI Details Patient presents for physical. She complains of vaginal dryness and uncomfortable intercourse. 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 1. Little interest or pleasure in doing things: not at all 2. Feeling down, depressed, or hopeless: not at all 3. Trouble falling or staying asleep, or sleeping too much: not at all 4. Feeling tired or having little energy: not at all 5. Poor appetite or overeating: not at all 6. Feeling bad about yourself - or that you are a failure or have let yourself or your family down: not at all 7. Trouble concentrating on things, such as reading the newspaper or watching television: not at all 8. Moving or speaking so slowly that other people could have noticed. Or the opposite - being so fidgety or restless that you have been moving around a lot more than usual: not at all 9. Thoughts that you would be better off or of hurting yourself in some way: not at all Total score: 0 Depression Screening Interpretation: Negative Depression Screening Done: Yes 47463 - PHQ-9 Billing: Yes Source: Developed by Drs. Evan Diaz, Ariane Lance, Gerardo Stovall and colleagues, with an educational idalia from [employer]. Thrive Questionnaire Date Thrive assessed: 10/04/24 I am a: Patient What is your living situation today?: I have a steady place to live Within the past 12 months, did the food you bought not last and you didn't have the money to get more?: Never true Within the past 12 months, did you worry whether your food would run out before you got money to buy more?: Never true Do you have trouble paying for medicines?: No Do you have trouble getting transportation to medical appointments?: No Do you have trouble paying your heating and electricity bill?: No Do you have trouble taking care of your child, family member or friend?: No Do you have trouble with day-to-day activities such as bathing, preparing meals, shopping, managing finances, etc.?: No Are you currently unemployed and looking for a job?: No Are you interested in more education?: No Please select the resources that you would like help with: None Currently or been in a relationship where the following occur: No concerns reported THRIVE Score: 0 AUDIT C Alcohol Use Questionnaire (AUDIT-C) 1. How often do you have a drink containing alcohol?: 2-3 times a week 2. How many drinks containing alcohol do you have on a typical day when you are drinking?: 1 or 2 3. How often do you have six or more drinks on one occasion?: Never Total Score: 3 ADONAY-7 AMB Questionnaire ADONAY-7 Date ADONAY - 7 assessed: 10/04/24 Feeling nervous, anxious, or on edge: 0 = Not at all Not being able to stop or control worryin = Not at all Worrying too much about different things: 0 = Not at all Trouble relaxin = Not at all Being so restless that it is hard to sit still: 0 = Not at all Becoming easily annoyed or irritable: 0 = Not at all Feeling afraid as if something awful might happen: 0 = Not at all Total ADONAY-7 score (0-4 normal; 5-9 mild; 10-14 moderate; 15-21 severe): 0 Source: Developed by Drs. Evan Diaz, Ariane Lance, Gerardo Stovall and colleagues, with an educational idalia from [employer]. ADONAY-7 Assessment Billing ADONAY-7 Assessment Tool: ADONAY-7 Assessment 71045 Review of Systems Const All systems reviewed & are unremarkable except as noted in HPI and below Eyes Reports no additional complaints ENT Reports no additional complaints Card Reports no additional complaints Resp Reports no additional complaints GI Reports no additional complaints Reports no additional complaints Physical exam (Primary Care) Vital Signs: Last Vital Signs Temp 98.1 F 10/04/24 13:18 Pulse 78 10/04/24 13:18 Resp 18 10/04/24 13:18 BP 108/70 10/04/24 13:18 Pulse Ox 99 10/04/24 13:18 Oxygen Delivery Method Room Air 10/04/24 13:18 BMI result Body Mass Index 22.4 Tobacco/Smoking Status: Tobacco use Status Tobacco use date assessed 10/04/24 10/04/24 13:21 Patient Tobacco Use Status Former Tobacco user (over 20 10/04/24 13:21 years ago) e-Cigarette/Vaping Use Never Used 10/04/24 13:21 PHQ-9: PHQ-9 Score PHQ-9: Total score 0 10/04/24 13:25 Depression Screening Interpretation: Negative Thrive Assessment: Date of Thrive Assessment Date Thrive assessed 10/04/24 10/04/24 13:25 Currently or been in a relationship where the following occur: No concerns reported Const General: no acute distress HENMT Head: Yes normal to inspection Ears: hearing grossly normal bilaterally Face and sinus: Yes normal facial exam Mouth: Normal oral and palatal mucosa present Throat: Yes posterior oropharynx normal Eyes General: appearance normal, both eyes and all related structures Resp Effort & Inspection: normal respiratory effort Auscultation: clear to auscultation bilaterally Cardio Rhythm: regular rhythm Heart sounds: S1 normal heart sound present and S2 normal heart sound present GI Inspection: Yes normal to inspection Palpation (GI): Soft to palpation Percussion: Yes normal to percussion Auscultation: normal bowel sounds Speculum Exam - Vagina: vagina atrophic Speculum Exam - Cervix: normal appearance of the cervix Bimanual exam- vagina & uterus: normal bimanual exam Bimanual Exam- Adnexa, other: normal adnexae Coding Level of Care Code Est Pt Prev Care 40-64y(76370) Diagnoses Dysplastic nevi D23.9 Annual physical exam Z00.00 Additional Codes ADONAY-7 Assessment Billing - ADONAY-7 Assessment Tool: ADONAY-7 Assessment 00556 ([id number]) PHQ-9 - 65297 - PHQ-9 Billing: Yes ([id number]) Assessment & Plan Assessment & Plan (1) Dysplastic nevi: Code(s): D23.9 - Other benign neoplasm of skin, unspecified Category: Medical Plan: Referred to dermatology (2) Annual physical exam: Code(s): Z00.00 - Encounter for general adult medical examination without abnormal findings Category: Medical Plan: Well-balanced diet regular physical activity discussed with the patient she is up-to-date with the mammogram. Pap smear was done today. For atrophic vaginosis estradiol vaginal cream will be tried. Patient will return for physical in 1 year or PRN Orders: Orders Pap Smear Today Z00.00 - Encounter for general adult medical examination without abnormal findings Comprehensive [place]. Panel Fast 1 Year E55.9 - Vitamin D deficiency, unspecified, Z00.00 - Encounter for general adult medical examination without abnormal findings TSH reflex Free T4 1 Year E55.9 - Vitamin D deficiency, unspecified, Z00.00 - Encounter for general adult medical examination without abnormal findings Vitamin D 25-OH Total 1 Year E55.9 - Vitamin D deficiency, unspecified, Z00.00 - Encounter for general adult medical examination without abnormal findings UA w Microscopic 1 Year E55.9 - Vitamin D deficiency, unspecified, Z00.00 - Encounter for general adult medical examination without abnormal findings Complete Blood Count Auto Diff 1 Year E55.9 - Vitamin D deficiency, unspecified, Z00.00 - Encounter for general adult medical examination without abnormal findings Lipid Panel 1 Year E55.9 - Vitamin D deficiency, unspecified, Z00.00 - Encounter for general adult medical examination without abnormal findings Referrals Dermatology Referral D23.9 - Other benign neoplasm of skin, unspecified Medications: New estradiol 0.01%(0.1mg/gram) 1 g vaginal 3XW 42.5 grams 3RF
--- OUTSIDE RECORDS SUMMARY | 2024-10-04 13:27 | XMS_ITS | Clinical Summary ---
Author Organization [facility] Address [address] [place] [id number] Phone Care Team Providers Care Management Architect Name Role Phone Pcp, Unknown Primary Care Provider Unavailabl e Social History Tobacco Use Types Packs/Day Years Used Date Smoking Tobacco: Never Assessed Education Answer Date Recorded Are you interested in more education? Not on chris e 06/28/2022 Are you concerned about learning? Not on file 06/28/2022 No 06/28/2022 No 06/28/2022 Digital Access Answer Date Recorded No 07/27/2022 No 07/27/2022 No 07/27/2022 Reliable internet access at home? Not on file 07/27/2022 Device with a working camera? Not on file Comments Unknown Sex and Gender Information Value Date Recorded Sex Assigned at Not on file Legal Sex Female 9:40 AM EDT Gender Identity Not on file Sexual Orientation Not on file Plan of Treatment Health Maintenance Due Date Last Done Comments Adult Td,Tdap Booster 1967 LIPID PANEL 1967 DEPRESSION SCREENING 1979 SMOKING Hx and SMOKELESS TOB ACCO SCREENING 11/05/1980 HEPATITIS C SCREENING 11/05/1985 HIV ONE-TIME SCREENING (18-6 5 YEARS) 11/05/1985 PAP SMEAR 11/05/1988 MAMMOGRAM 2007 COLOGUARD 11/05/2012 COLONOSCOPY 11/05/2012 COLORECTAL CANCER SCREENING 11/05/2012 FIT TEST 11/05/2012 FOBT 11/05/2012 SIGMOIDOSCOPY 11/05/2012 VIRTUAL COLONOSCOPY 11/05/2012 PNEUMOCOCCAL VACCINES (50+ y ears) (1 of 1 - PCV) 11/05/2017 ZOSTER VACCINES (1 of 2) 11/05/2017 COVID-19 VACCINE (2 2023-2 5 season) 2023 06/21/2020 HEPATITIS A VACCINES Aged Out No long er eligible based on patient's age to complete this topic HIB VACCINES Aged Out No longer eligi ble based on patient's age to complete this topic MENINGOCOCCAL VACCINES (ACWY) Aged Out No longer eligible based on patient's age to complete this topic MENINGOCOCCAL VACCINES (B) Aged Out N o longer eligible based on patient's age to complete this topic Medical Devices Not on file Insurance [place] Everywhere PPO [place] PPO [facility] [employer] PPO [facility] [employer] [facility] [employer] [facility] [employer] PPO [facility] [employer] PPO [facility] [employer] PPO [facility] [employer] PPO Care Teams Management Architect Relationship Specialty Start Date End Date Pcp, Unknown PCP - General 06/30/19 Additional Source Comments The information contained in this document represents components of the legal health record. It is not the complete legal health record.[facility]
== END 2024-10-04 15:46 | disposition home or self-care (01) ==
LOC: HO.HMCC 13:09
PROVIDERS: PCP Internal Medicine; Visit Provider Internal Medicine
DX: D23.9 Other benign neoplasm of skin, unspecified (principal); Z00.00 Encounter for general adult medical examination without abnormal findings

== ENCOUNTER 2024-10-04 13:08 | Outpatient (REF) | payer BC, SELFPAY | END 2024-10-04 13:09 | disposition home or self-care (01) | LOC: HO.LNP 13:08 | PROVIDERS: PCP Internal Medicine; Visit Provider Internal Medicine | DX: Z00.00 Encounter for general adult medical examination without abnormal findings (principal); Z12.4 Encounter for screening for malignant neoplasm of cervix; Z11.51 Encounter for screening for human papillomavirus (HPV); D23.9 Other benign neoplasm of skin, unspecified | CPT/HCPCS: 87626; 88175; 96127 ==